=== PATIENT | female | born 1935 | race Caucasian/White ===

== ENCOUNTER 2017-01-14 09:26 | Emergency (ER) | payer OTHER, MEDICAID ==
--- NOTE | 2017-01-14 09:57 | ED Physician Chart ---
Chief Complaint/HPI - Patient Information Date Seen:: 01/14/17 Time Seen:: 09:54 Chief Complaint:: hip pain History of Present Illness:: 81-year-old female history of severe osteoarthritis and gait abnormality, complains of acute, constant, mild to moderate, aching, nonradiating, worse with movement, right hip pain that started about 30 minutes prior to arrival to the ER when she suffered mechanical fall landing on her hip. Denies any head injury. Allergies:: Allergies Allergy/AdvReac Type Severity Reaction Status Date / Time No Known Allergies Allergy Verified 07/08/16 13:40 Vitals:: Vital Signs - 8 hr 01/14/17 09:44 Temp 97.6 F RR 83 BP 138/74 O2 Sat % 94 Historian:: Patient Review:: Nurse's Note Reviewed Review of Systems - Review of Systems Other: Complete system review otherwise unremarkable except as noted in HPI. Past Medical History - Past Medical History Past Medical History: Dyslipidemia, Other (constipation, arthritis) Family History: None Social History: Non Smoker, No Alcohol, No Drug Use, Care Facility Surgical History: None Psychiatricy History: None Medication: Reviewed Family Medical History - Family Member Mother History Unknown: Yes Physical Exam - Physical Examination Other:: INITIAL VITAL SIGNS: Reviewed by me GENERAL: Alert and interactive. No acute distress HEAD: Head is normocephalic and atraumatic EYES: EOMI. . No scleral icterus. No conjunctival injection ENT: Moist mucous membranes. NECK: Supple. No masses. Full range of motion RESPIRATORY: No tachypnea. Clear breath sounds bilaterally. No wheezing, rales, or rhonchi CV: Regular rate and rhythm. No murmurs, rubs, or gallops ABDOMEN: Soft, non-distended, non-tender. No guarding. No rebound. No masses. EXTREMITIES: Right leg is shortened and turned inward however this may be congenital. SKIN: Warm and dry. No obvious rashes. NEUROLOGIC: Alert and oriented. Face is symmetric. Speech is normal. Moves all extremities equally. Motor and sensory distally intact. Labs/Radiology/EKG Results - Radiology Results Results: X-ray right hip 3 views was interpreted independently and contemporaneously by Todd Good MD: Concern for acute on chronic fracture of femoral back and acetabulum No acute dislocations No soft tissue foreign bodies Overall impression: Possible acute on chronic fracture femoral neck and acetabulum CT pelvis without contrast per radiology Limited exam due to streak artifact. Evidence of previous intramedullary alicia and screw fixation of old right femoral fracture. There is probable chronic displaced fracture right femoral head and neck now malpositioned and located inferior to the right intertrochanteric/ femoral head screw. The intertrochanteric and right femoral head screw is now seen along the superior aspect of the right acetabulum causing contour deformity of the right superior/labral asked Tylenol was surrounding increased lucency. 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 Left hip arthroplasty also noted. ED Septic Shock - . Is Septic Shock (SBP<90, OR Lactate>4 mmol\L) present?: No - <6hrs of presentation: Vital Signs: Vital Signs - 8 hr 01/14/17 09:44 Temp 97.6 F RR 83 BP 138/74 O2 Sat % 94 Reassessment (Disposition) - Reassessment Reassessment:: . The patient's blood pressure was elevated (>120/80) but appears stable without evidence of hypertensive emergency or urgency. The patient was counseled about the risks hypertension urged to pursue outpatient monitoring and therapy within a week with her primary care physician. Left hip has intertrochanteric alicia and screw looks like there may be some hardware malfunction but it is questionable whether or not the fall was the cause. She is currently ambulating at her baseline. Discussed case with Dr. Ruiz who will follow-up with the patient on the outpatient basis. Recommend reimaging In one week if pain persists. Recommend Tylenol when necessary for pain. Discussed with patient. She understands and agrees with the plan. Reassessment Condition:: Improved - Diagnosis Diagnosis:: Complication of internal orthopedic hardware malfunction, right hip Right hip pain Elevated blood pressure without the diagnosis of hypertension - Aftercare/Follow up Instructions Aftercare/Follow-Up Instructions:: Counseled pt regarding lab results/diagnosis & need follow up, Refer to Discharge Instructions - Patient Disposition Discharge/Transfer:: Home Time:: 13:33 Condition at Disposition:: Improved ED Discharge Plan - Patient Disposition Admit/Discharge/Transfer: PT DISCHARGED HOME Condition at Disposition: Improved Instructions: Hip Pain Additional Instructions: If pain persists after one week, recommend repeat imaging right hip.
[2017-01-14 10:00] VITALS: BP 138/74
--- NOTE | 2017-01-14 12:02 | Diagnostic Imaging Report ---
Pelvis and left hip 3 views Indication: Fall Comparison: none Findings: Partially visualized left hip arthroplasty is noted. There is evidence of previous intramedullary alicia and screw fixation of right femoral fracture. Note that the intertrochanteric screw traverses the acetabular cortex with increased lucency seen in this region. Note that the distal aspect of the femoral alicia is incompletely visualized. There is increased ossification of femoral shaft. Atherosclerosis is noted. No obvious acute fracture is identified. Degenerative changes of the lower lumbar spine are noted. Impression: Postsurgical changes with evidence of previous intramedullary alicia and screw fixation of old right femoral fracture. Note that the proximal intertrochanteric screw is now seen traversing the superior acetabular cortex with increased lucency surrounding the screw. This is most outbound telemarketing representative of hardware failure. There is age-indeterminate possibly chronic fracture with angulation of the right femoral head and neck region. Note that the distal right femoral stem is incompletely visualized. Consider additional views as needed. Partially visualized left hip arthroplasty In the setting of trauma, if clinical symptoms persist and there is continued concern for an occult fracture, follow up exams in 5-7 days is suggested.
--- NOTE | 2017-01-14 12:12 | Diagnostic Imaging Report ---
CT pelvis without IV contrast HISTORY: Pain, rule out fracture COMPARISON: None Technique: Axial images were obtained from the lower abdomen to the proximal bilateral femurs without IV contrast. Reconstructions were made. total DLP: 335, CTDI8.5 Findings: Postsurgical changes of the proximal ascending colon are noted. Streak artifact from postsurgical changes of the bilateral femurs limited the examination. Diffuse atherosclerotic vascular disease is noted. A left hip arthroplasty is visualized. No evidence of hardware loosening. There is evidence of intramedullary alicia and screw fixation of previous right femoral fracture. Note is made of chronic appearing right femoral head and neck fracture located inferior to the intertrabecular screw. The right intertrochanteric screw is seen within the superior lateral aspect of the right acetabulum with increased lucency within this region. No obvious gross acute fracture is identified. Degenerative changes lower lumbar spine and SI joints are noted. Areas of callus formation and ossification of the femoral right femoral shaft are partially visualized. IMPRESSION: Limited exam due to streak artifact. Evidence of previous intramedullary alicia and screw fixation of old right femoral fracture. There is a probable chronic displaced fracture right femoral head and neck now malpositioned and located inferior to the right intertrochanteric/femoral head screw. The intertrochanteric and right femoral head screw is now seen along the superior aspect of the right acetabulum causing contour deformity of the right superior/lateral acetabulum with surrounding increased lucency. These findings are most artist representative of hardware failure. Left hip arthroplasty also noted.
== END 2017-01-14 14:50 ==
LOC: ER 09:26
DX: T84.090A Other mechanical complication of internal right hip prosthesis, initial encounter (principal); R03.0 Elevated blood-pressure reading, without diagnosis of hypertension; E78.5 Hyperlipidemia, unspecified; K59.00 Constipation, unspecified
CPT/HCPCS: 72192-TC; Z7502; Z7610

== ENCOUNTER 2017-01-17 03:50 | Emergency (ER) | payer OTHER, MEDICAID ==
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
--- NOTE | 2017-01-17 14:28 | Diagnostic Imaging Report ---
Pelvis (single view) HISTORY: Pain There is complete obliteration and deformity of the right hip joint region. Obliteration of the femoral head and joint space. Findings are associated with orthopedic fixation rods traversing the intratrochanteric and femoral shaft regions. There is a left hip arthroplasty. Deformity of the right ischial region of the pelvis consistent with old fractures. Degenerative changes noted in the visualized lower lumbar spine. IMPRESSION: 1. Extensive deformity with chronic and surgical changes associated with obliteration of the right hip joint. 2. Left hip arthroplasty 3. Deformity of the right ischial region of the pelvis consistent with old trauma 4. Left hip arthroplasty
--- NOTE | 2017-01-17 14:29 | Diagnostic Imaging Report ---
Right knee (2 views) HISTORY: Pain, trauma Generalized osteoporosis throughout the bones about the knee. The distal portion of an intramedullary fixation alicia traverses the femoral shaft. An intramedullary fixation alicia extends through the proximal shaft of the tibia. There is generalized joint space narrowing. Mild sclerotic change noted along the articular surface of the lateral tibial plateau. No acute bony abnormalities are seen. No fractures. Focal cortical thickening noted along the proximal shaft of the fibula that may be related to old trauma. Vascular calcification noted. IMPRESSION: 1. No definite acute abnormalities 2. Surgical changes 3. Atherosclerotic vascular changes
== END 2017-01-17 07:10 | disposition home or self-care (01) ==
LOC: ER 03:50
DX: S00.83XA Contusion of other part of head, initial encounter (principal); S80.01XA Contusion of right knee, initial encounter; S00.532A Contusion of oral cavity, initial encounter; I10 Essential (primary) hypertension; J44.9 Chronic obstructive pulmonary disease, unspecified; J45.909 Unspecified asthma, uncomplicated; F31.9 Bipolar disorder, unspecified; W06.XXXA Fall from bed, initial encounter; Y93.89 Activity, other specified; Y92.89 Other specified places as the place of occurrence of the external cause; Y99.8 Other external cause status
CPT/HCPCS: 72170-TC; 73560-TC-RT; Z7502